=== PATIENT | female | born 1970 | race Caucasian/White ===

== ENCOUNTER 2017-09-01 04:12 | Emergency (ER) | payer MEDICAID ==
[~2017-09-01] VITALS: Ht 157.5 cm; Wt 99.3 kg
[~2017-09-01 04:12] MED LIST: ACETAMINOPHEN-1 EAC1 PO; ALBUTEROL INH IH; ALPRAZOLAM 0.50.5 M1 PO; AMOXICILLIN500 M1 PO; BACTRIM DS TAB1 EACH PO; BENTYL 20 MG TA20 M1 OR; BENTYL 20 MG TA20 M1 PO; CELEXA 20 MG TA20 MG PO; CRESTOR10 MG OR; CRESTOR10 MG PO; DULERA 100 MCG/13 GM OR; DULERA 200 MCG/13 GM IH; FENOFIBRATE160 MG PO; FLONASE 0.05%50 MCG INH; HALCION0.25 MG PO; IBUPROFEN200 M2 PO; LIPITOR 10 MG10 M1 PO; LIPITOR40 MG PO; LITHIUM CARBON300 M6 PO; LOTRIMIN AF10 ML PO; LUNESTA3 MG OR; LUNESTA3 MG PO; MIRAPEX1 MG PO; OMEPRAZOLE20 M2 OR; OXYCODONE HCL5 M1 OR; PERCOCET 10-321 EACH PO; PERCOCET 5-3251 EACH PO; PRILOSEC 20 MG20 MG PO; PROAIR HFA8.5 GM IH; PROTONIX40 M1 PO; RESTORIL30 MG PO; SINGULAIR 10 MG10 M1 OR; SINGULAIR 10 MG10 M1 PO; TRAMADOL 50 MG50 MG OR; TRAMADOL 50 MG50 MG PO; TRAZODONE 150150 M1 PO; TUSSIONEX PENN473 ML PO; ULTRAM 50MG TAB50 MG PO; VITAMIN D 5050000 I1; VITAMIN D 5050000 I1 OR; VITAMIN D 5050000 I1 PO; ZOFRAN4 MG PO; ZPAK PO; ZYRTEC10 M2 OR; ZYRTEC10 M2 PO
[2017-09-01 06:22] LABS: CALCIUM 8.4 mg/dL (8.5-10.1); CREATININE 0.7 mg/dL (0.6-1.3); POTASSIUM 3.8 mmol/L (3.5-5.1)
[2017-09-01] MEDS ORDERED: NORCO 5-325 TA1 EACH PO (08:14)
[2017-09-01] MEDS ORDERED: ZOFRAN ODT4 MG PO (08:14)
[2017-09-01] MEDS ORDERED: PERCOCET 5-3251 EACH PO (08:35)
[2017-09-01 08:47] VITALS: BP 106/52
== END 2017-09-01 08:51 | disposition home or self-care (01) ==
LOC: M.ERS 04:12
PROVIDERS: Emergency Medicine Emergency Medical Services
DX: M87.88 Other osteonecrosis, other site (principal); F03.90 Unspecified dementia, unspecified severity, without behavioral disturbance, psychotic disturbance, mood disturbance, and anxiety; F31.9 Bipolar disorder, unspecified; K21.9 Gastro-esophageal reflux disease without esophagitis; Z90.49 Acquired absence of other specified parts of digestive tract; Z90.710 Acquired absence of both cervix and uterus